=== PATIENT | male | born 1975 | race Caucasian/White ===

== ENCOUNTER 2017-03-17 07:47 | Emergency (ER) | payer SELFPAY ==
--- NOTE | 2017-03-17 07:49 | ED Physician Documentation ---
General Adult - HISTORIAN Historian: patient - HPI Stated Complaint: fever and chills since yesterday afternoon Chief Complaint: Fever Onset: hours (8) Timing: still present, worse since Severity: mild Further Comments: yes (states last night started with fever and aches. Today cough (non productive), fever, and fatigue . Has not taken any OTC meds) - ROS CONST: fever EYES/ENT: none CVS/RESP: none GI/: none MS/SKIN/LYMPH: none NEURO/PSYCH: denies: headache, dizziness - PAST HX Past History: other ([place], reflux, HTN ) Other History: none Surgeries/Procedures: other (Stent ) Immunizations: referred to PCP Allergies/Adverse Reactions: Allergies Allergy/AdvReac Type Severity Reaction Status Date / Time No Known Allergies Allergy Verified 03/17/17 08:15 Home Medications: Ambulatory Orders Medication Instructions Recorded Aspirin [Adult Low Dose Aspirin EC] 81 mg PO DAILY 03/17/17 Atorvastatin Calcium [Atorvastatin 20 mg PO HS 03/17/17 Calcium] Metoprolol Succinate [Toprol XL] 12.5 mg pe PO BID 03/17/17 Omeprazole [Omeprazole] 20 mg PO DAILY 03/17/17 - SOCIAL HX Smoking History: non-smoker Alcohol Use: none Drug Use: none - FAMILY HX Family History: No - REVIEWED ASSESSMENTS Nursing Assessment Reviewed: Yes Vitals Reviewed: Yes General Adult Physical Exam - PHYSICAL EXAM GENERAL APPEARANCE: no distress NECK: normal inspection RESPIRATORY: no resp distress, chest non-tender, breath sounds normal CVS: reg rate & rhythm, heart sounds normal, no murmur ABDOMEN: soft SKIN: warm/dry, normal color EXTREMITIES: non-tender NEURO: oriented X3, CN's nml as tested Discharge Clincal Impression: Influenza A Referrals: Primary Doctor,No [Primary Care Provider] - 2 Days Comments: Tamiflu prescription sent - he wanted hand written due to he was not sure where he would get it filled. He is [place] for work and lives 5 hours away. Encouraged OTC meds for symptoms. Rest. Liquids and return if any changes or concerns Condition: Stable Disposition: 01 HOME, SELF-CARE Decision to Admit: NO Date of Decison to Admit: 03/17/17 Decision Time: 08:21
[2017-03-17 08:13] VITALS: BP 140/87
[2017-03-17] MEDS: IBUPROFEN 400 MG TABLET PO ONE (08:19)
== END 2017-03-17 08:35 | disposition home or self-care (01) ==
LOC: ED 07:47
DX: J11.1 Influenza due to unidentified influenza virus with other respiratory manifestations (principal)
CPT/HCPCS: 99283